=== PATIENT | female | born 1935 | race Caucasian/White ===

== ENCOUNTER → 2017-09-13 | Outpatient (CLI) | payer MEDICARE ==
[~2017-09-13] MED LIST: ALBU8.5H IH; ASP325 PO; ASPI-757 PO; CALC-638 PO; CALC600T72 PO; CELE-1 PO; CHOL400T55 PO; CHON400C PO; ERG400 PO; FLU45SYR17 IM; FLUT1DIS28 IH; GLUC-158 PO; GLUC750T10 PO; IBUP800T37 PO; MECL25TA27 PO; MULT-820 PO; OMEG-11 PO; PNEU0.5D3 IM; RANI-315 PO; RANI-375 PO; SIMV-54 PO; SYSTANODPT OD; TUM500 PO; VERA240C12 PO; VERA360C6 PO; [UNRECOGNIZED DRUG - CODE] PO
--- NOTE | 2017-09-14 12:05 | RADIOLOGY IMAGING REPORT ---
FACILITY: [facility] - [place] PATIENT NAME: JESU POLANCO : [id number] MR: [id number] V: [id number] EXAM DATE: [id number] ORDERING PHYSICIAN: DONALD SPAIN TECHNOLOGIST: Christina Ricci PROCEDURE:BILATERAL DIGITAL SCREENING MAMMOGRAM WITH CAD ASSISTED INTERPRETATION & 3D TOMOSYNTHESIS COMPARISON:Mammograms 08/11/2016 & 01/15/2015 INDICATIONS:SCREENING FINDINGS: Breast tissue demonstrates scattered fibroglandular tissue elements. This examination was reviewed with the aid of CAD. There is a benign calcification in the upper outer quadrant of the right breast, unchanged from the prior study. There is no suspicious mass, calcification or architectural distortion. DIAGNOSTIC CATEGORY 2--BENIGN FINDING. RECOMMENDATIONS: ROUTINE MAMMOGRAM AND CLINICAL EVALUATION. IMPRESSION: BIRADS 2: Benign finding. No mammographic evidence for malignancy. Dictated by: Arash Avilez M.D. on 09/14/2017 at 11:17 Transcribed by: DEBBY on 09/14/2017 at 11:24 Approved by: Arash Avilez M.D. on 09/14/2017 at 12:05 [facility]
== END ==
LOC: MAMO 00:57
PROVIDERS: ATTEND Emergency Medicine
DX: Z12.31 Encounter for screening mammogram for malignant neoplasm of breast (principal); R92.1 Mammographic calcification found on diagnostic imaging of breast
CPT/HCPCS: 77063; 77067

== ENCOUNTER → 2017-10-12 | Outpatient (CLI) | payer MEDICARE ==
[~2017-10-12] MED LIST changes: +MONT10TA PO
--- NOTE | 2017-10-12 09:32 | RADIOLOGY IMAGING REPORT ---
[place] [facility] [place] NAME: Alexus Cruz : 1935 MR: [id number] V: [id number] EXAM DATE: ORDERING PHYSICIAN: DONALD SPAIN TECHNOLOGIST: Location: [facility] - [place] Patient: Alexus Cruz : 1935 Visit/Account:[id number] Date of Sevice: 10/12/2017 Exam type: CHEST PA AND LAT History: Cough since June Comparison: September 04, 2008. Findings: The lungs appear free of acute effusions, infiltrates or edema. There is mild hyperexpansion of the lung magana. The cardiac silhouette appears normal in size. There is an S-shaped scoliosis of the t horacal lumbar spine and incompletely imaged postoperative changes lumbar spine. IMPRESSION: 1. No acute cardiac pulmonary process is seen Hyperexpansion lung magana again noted Report Dictated By: Gila Chand MD at 10/12/2017 9:26 AM Report E-Signed By: Gila Chand MD at 10/12/2017 9:28 AM WSN:[email or web address]
== END ==
LOC: RAD 08:46
PROVIDERS: ATTEND Emergency Medicine
DX: R91.8 Other nonspecific abnormal finding of lung field (principal)
CPT/HCPCS: 71046

== ENCOUNTER → 2018-10-19 | Outpatient (CLI) | payer MEDICARE ==
--- NOTE | 2018-10-23 12:51 | RADIOLOGY IMAGING REPORT ---
FACILITY: [facility] - [place] PATIENT NAME: JESU POLANCO : [id number] MR: [id number] V: [id number] EXAM DATE: [id number] ORDERING PHYSICIAN: TISHA CALVILLO TECHNOLOGIST: Christina Ricci PROCEDURE:BILATERAL DIGITAL SCREENING MAMMOGRAM WITH CAD ASSISTED INTERPRETATION & 3D TOMOSYNTHESIS COMPARISON:[facility] INDICATIONS:SCREENING FINDINGS: The breasts are heterogeneously dense. Benign appearing asymmetries and a few benign appearing calcifications are scattered bilaterally, essential unchanged. DIAGNOSTIC CATEGORY 1--NEGATIVE. RECOMMENDATIONS: ROUTINE MAMMOGRAM AND CLINICAL EVALUATION IN 1 YR. IMPRESSION: BIRADS 1: Negative. Dictated by: Emiliano Stanford M.D. on 10/19/2018 at 16:56 Transcribed by: JANIE on 10/22/2018 at 10:02 Approved by: Yossi Munroe M.D. on 10/23/2018 at 12:50 [facility]
== END ==
LOC: MAMO 09-26 01:04
PROVIDERS: ATTEND Physician Assistant
DX: Z12.31 Encounter for screening mammogram for malignant neoplasm of breast (principal)
CPT/HCPCS: 77063; 77067